=== PATIENT | female | born 1940 | race Two or more races ===

== ENCOUNTER 2021-01-23 23:36 | Inpatient (IN) | payer BC, OTHER ==
[~2021-01-23] VITALS: Ht 162.6 cm; Wt 55.8 kg
[2021-01-24] MEDS ORDERED: SODIUM CHLORIDE 0.9% 1,000 ML IV ONE ×2 (00:15→06:15)
[2021-01-24] MEDS ORDERED: ONDANSETRON HCL 4 MG/2 ML VIAL IV ONE ×2 (00:15→04:45)
[2021-01-24 00:43] LABS: Basophils # (auto) 0.1 10 ^3/uL (0-0.2); Basophils % (auto) 0.5 % (0.0-2.0); Eosinophils # (auto) 0 10 ^3/uL (0-0.8); Eosinophils % (auto) 0.2 % (0.0-7.0); Hematocrit 37.1 % (36.0-46.0); Hemoglobin 12.2 g/dL (12.2-16.2); Lymphocytes # (auto) 0.8 10 ^3/uL (0.4-5.4); Lymphocytes % (auto) 7.2 % (10.0-50.0); Mean Corpuscular Hemoglobin 28.4 pg (28.0-32.0); Mean Corpuscular Hgb Conc. 32.8 g/dL (32.0-36.0); Mean Corpuscular Volume 86.5 fL (80.0-100.0); Monocytes # (auto) 0.3 10 ^3/uL (0-1.3); Monocytes % (auto) 3.1 % (0.0-12.0); Neutrophils # (auto) 10.1 10 ^3/uL (1.6-8.6); Nucleated Red Blood Cells % 0.1 %; Platelet Count (auto) 387 10^3/uL (140-450); Red Blood Cells 4.29 10^6/uL (4.0-5.20); Red Cell Distribution Width 17.3 % (11.8-14.3); White Blood Cell 11.4 10^3/uL (4.4-10.8)
[2021-01-24] MEDS ORDERED: HYDROcodone-ACET 5/325MG TAB PO ONE (00:45)
[2021-01-24 00:57] LABS: INR 1.03 (0.9-1.15); Partial Thromboplastin Time 27.9 sec (23.0-31.2)
[2021-01-24] MEDS ORDERED: dilTIAZem 25 MG/5 ML VIAL IV ONE ×2 (01:00→06:15)
[2021-01-24 01:01] LABS: Alanine Aminotransferase 11 U/L (13-56); Albumin 2.9 g/dL (3.4-5.0); Anion Gap 19 (5-15); Aspartate Aminotransferase 9 U/L (15-37); Blood Urea Nitrogen 18 mg/dL (7-18); Calcium 8.6 mg/dL (8.5-10.1); Carbon Dioxide 16 mmol/L (21-32); Chloride 101 mmol/L (98-107); GFR African American 78 mL/min; GFR Non-African American 64 mL/min; Glucose 228 mg/dL (74-106); Magnesium 2.1 mg/dL (1.6-2.6); Potassium 3.1 mmol/L (3.5-5.1); Sodium 136 mmol/L (136-145)
[2021-01-24 01:06] LABS: Alkaline Phosphatase 103 U/L (45-117); Bilirubin, Total 0.3 mg/dL (0.2-1.0); Total Protein 6.9 g/dL (6.4-8.2)
[2021-01-24] MEDS ORDERED: POTASSIUM EFFERVESENT TAB 25 MEQ PO ONE (03:30)
[2021-01-24] MEDS ORDERED: dilTIAZem HCL 60 MG TAB PO ONE (04:00)
[2021-01-24] MEDS ORDERED: POTASSIUM CHL 20MEQ/100ML 100 ML IV ONE (04:45)
[2021-01-24] MEDS ORDERED: ONDANSETRON HCL 4 MG/2 ML VIAL ONE (05:24)
[2021-01-24] MEDS ORDERED: DEXTROSE (50%) 50ML SYRG IV PRN (06:15)
[2021-01-24] MEDS ORDERED: NITROGLYCERIN 0.4 MG SL TAB SL PRN (06:15)
[2021-01-24] MEDS ORDERED: MORPHINE SULF INJ 2 MG/ML SYRINGE 1ML IV PRN (06:15)
[2021-01-24 06:16] LABS: Urine Bacteria MANY /hpf (None Seen); Urine Blood 1+ /uL (Negative); Urine Mucus FEW (None Seen); Urine Specific Gravity 1.023 (1.001-1.035); Urine WBC 80 /hpf (0 - 5)
[2021-01-24 06:35] LABS: Amylase 11 U/L (25-115); Lipase 26 U/L (73-393)
[2021-01-24] MEDS: ACCU-CHEK COMFORT CURVE STRIP VI SCH ×4 (06:53→22:45)
[2021-01-24] MEDS: InsuLIN REG 1unit/0.01ml Soln (100units/ml) SC SCH ×5 (06:53→22:48)
[2021-01-24] MEDS ORDERED: AMIODARONE HCL 150 MG in D5W 5% 100 ML IV ONE (07:15)
[2021-01-24] MEDS ORDERED: HYDROcodone-ACET 10/325MG TAB PO PRN (07:30)
[2021-01-24] MEDS ORDERED: AMIODARONE 450mg/250ml AE 250 ML IV SCH (07:30)
[2021-01-24] MEDS: ONDANSETRON HCL 4 MG/2 ML VIAL IV PRN ×3 (07:42→18:17)
[2021-01-24] MEDS: CIPROFLOXACIN 400MG/200ML 200 ML IV SCH ×3 (08:15→22:45)
[2021-01-24 08:26] LABS: Basophils # (auto) 0 10 ^3/uL (0-0.2); Basophils % (auto) 0.2 % (0.0-2.0); Eosinophils # (auto) 0 10 ^3/uL (0-0.8); Eosinophils % (auto) 0.1 % (0.0-7.0); Hematocrit 29.6 % (36.0-46.0); Lymphocytes # (auto) 0.9 10 ^3/uL (0.4-5.4); Lymphocytes % (auto) 8.7 % (10.0-50.0); Mean Corpuscular Hemoglobin 28.9 pg (28.0-32.0); Mean Corpuscular Hgb Conc. 33.8 g/dL (32.0-36.0); Mean Corpuscular Volume 85.6 fL (80.0-100.0); Monocytes # (auto) 0.3 10 ^3/uL (0-1.3); Monocytes % (auto) 2.9 % (0.0-12.0); Neutrophils # (auto) 9.1 10 ^3/uL (1.6-8.6); Neutrophils % (auto) 88.1 % (37.0-80.0); Nucleated Red Blood Cells % 0.1 %; Platelet Count (auto) 324 10^3/uL (140-450); Red Blood Cells 3.45 10^6/uL (4.0-5.20); White Blood Cell 10.3 10^3/uL (4.4-10.8)
[2021-01-24 08:40] LABS: Albumin 2.2 g/dL (3.4-5.0); Potassium 3.9 mmol/L (3.5-5.1)
[2021-01-24 08:45] LABS: Bilirubin, Total 0.5 mg/dL (0.2-1.0); Total Protein 5.6 g/dL (6.4-8.2)
[2021-01-24] MEDS: ENOXAPARIN SOD 40 MG/0.4 ML SYRINGE SC SCH (09:43)
[2021-01-24] MEDS ORDERED: CIPROFLOXACIN 400MG/200ML 200 ML IV SCH (10:00)
[2021-01-24 15:44] VITALS: BP 167/77
[2021-01-24] MEDS: hydrALAZINE HCL 20 MG/ML VL IV PRN (16:18)
[2021-01-24] MEDS ORDERED: EZET10TA22 PO (16:26)
[2021-01-24] MEDS ORDERED: CARV12.544 PO (16:26)
[2021-01-24] MEDS ORDERED: INSU75IN2 SC (16:26)
[2021-01-24 16:55] VITALS: BP 167/77
[2021-01-24] MEDS: IBUPROFEN 600 MG TAB PO PRN (18:09)
[2021-01-24] MEDS: ACETAMINOPHEN 325 MG TAB PO PRN (18:17)
[2021-01-24 18:40] VITALS: BP 145/70
[2021-01-24 21:33] VITALS: BP 150/70
[2021-01-24] MEDS ORDERED: METOPROLOL TARTRATE 25 MG TAB PO SCH (22:00)
[2021-01-25] MEDS: ONDANSETRON HCL 4 MG/2 ML VIAL IV PRN ×2 (00:15→15:09)
[2021-01-25] MEDS: ACETAMINOPHEN 325 MG TAB PO PRN ×4 (03:42→19:40)
[2021-01-25 05:00] VITALS: BP 148/64
[2021-01-25] MEDS: ACCU-CHEK COMFORT CURVE STRIP VI SCH ×4 (05:59→22:45)
[2021-01-25] MEDS: InsuLIN REG 1unit/0.01ml Soln (100units/ml) SC SCH ×4 (06:02→22:00)
[2021-01-25] MEDS: IBUPROFEN 600 MG TAB PO PRN ×2 (06:29→17:01)
[2021-01-25 06:45] LABS: Basophils # (auto) 0 10 ^3/uL (0-0.2); Basophils % (auto) 0.4 % (0.0-2.0); Eosinophils # (auto) 0 10 ^3/uL (0-0.8); Eosinophils % (auto) 0.3 % (0.0-7.0); Hematocrit 28.3 % (36.0-46.0); Hemoglobin 9.4 g/dL (12.2-16.2); Lymphocytes # (auto) 0.8 10 ^3/uL (0.4-5.4); Lymphocytes % (auto) 9.8 % (10.0-50.0); Mean Corpuscular Hemoglobin 28.9 pg (28.0-32.0); Mean Corpuscular Hgb Conc. 33.4 g/dL (32.0-36.0); Mean Corpuscular Volume 86.4 fL (80.0-100.0); Monocytes # (auto) 0.4 10 ^3/uL (0-1.3); Monocytes % (auto) 4.6 % (0.0-12.0); Neutrophils # (auto) 6.7 10 ^3/uL (1.6-8.6); Neutrophils % (auto) 84.9 % (37.0-80.0); Platelet Count (auto) 304 10^3/uL (140-450); Red Blood Cells 3.27 10^6/uL (4.0-5.20); Red Cell Distribution Width 17.2 % (11.8-14.3); White Blood Cell 7.9 10^3/uL (4.4-10.8)
[2021-01-25 07:10] LABS: Albumin 2.3 g/dL (3.4-5.0); Potassium 3.2 mmol/L (3.5-5.1)
[2021-01-25 07:12] LABS: BUN/Creatinine Ratio 21.3
[2021-01-25 07:14] LABS: Bilirubin, Total 0.2 mg/dL (0.2-1.0); Total Protein 5.6 g/dL (6.4-8.2)
[2021-01-25 09:00] VITALS: BP 146/65
[2021-01-25] MEDS: METOPROLOL TARTRATE 50 MG TAB PO SCH ×2 (10:00→10:53)
[2021-01-25] MEDS: ENOXAPARIN SOD 40 MG/0.4 ML SYRINGE SC SCH (10:51)
[2021-01-25] MEDS: CIPROFLOXACIN 400MG/200ML 200 ML IV SCH ×2 (10:52→22:47)
[2021-01-25 13:15] VITALS: BP 154/83
[2021-01-25 17:10] VITALS: BP 112/73
[2021-01-25] MEDS ORDERED: LORazepam 2MG/ML-1ML VIAL IV PRN (21:00)
[2021-01-25 22:00] VITALS: BP_SYST 114; BP_SYST 134; BP_DIAS 67; BP_DIAS 71
[2021-01-26] MEDS: ACETAMINOPHEN 325 MG TAB PO PRN ×3 (02:33→17:21)
[2021-01-26 04:54] VITALS: BP 175/96
[2021-01-26] MEDS: hydrALAZINE HCL 20 MG/ML VL IV PRN (05:57)
[2021-01-26] MEDS: IBUPROFEN 600 MG TAB PO PRN ×2 (06:10→20:36)
[2021-01-26] MEDS: ACCU-CHEK COMFORT CURVE STRIP VI SCH ×4 (06:19→21:50)
[2021-01-26] MEDS: InsuLIN REG 1unit/0.01ml Soln (100units/ml) SC SCH ×4 (06:45→22:06)
[2021-01-26 07:00] VITALS: BP 137/58
[2021-01-26 09:00] VITALS: BP 143/80
[2021-01-26] MEDS: METOPROLOL TARTRATE 50 MG TAB PO SCH ×2 (10:00→21:50)
[2021-01-26] MEDS ORDERED: methylPREDNISolone SOD SUCC 500 MG in SODIUM CHL 0.9% 100 ML IV SCH (10:00)
[2021-01-26] MEDS: CIPROFLOXACIN 400MG/200ML 200 ML IV SCH (11:01)
[2021-01-26] MEDS: ENOXAPARIN SOD 40 MG/0.4 ML SYRINGE SC SCH (11:14)
[2021-01-26] MEDS ORDERED: IOHEXOL 350 MG/ML 100ML IJ ONE ×2 (11:32→12:39)
[2021-01-26] MEDS: ONDANSETRON HCL 4 MG/2 ML VIAL IV PRN (12:06)
[2021-01-26] MEDS ORDERED: GADOTERATE MEG 7.5 MMOL/15ml INJ (0.5MMOL/ml) IV ONE (12:14)
[2021-01-26 12:56] VITALS: BP 116/66
[2021-01-26 16:44] VITALS: BP 116/59
[2021-01-26] MEDS ORDERED: VANCOMYCIN PER PHARMACY 0 MG IV SCH (18:15)
[2021-01-26] MEDS ORDERED: VANCOMYCIN 1GM/250ML 250 ML IV SCH (21:00)
[2021-01-26] MEDS: PIPERACILLIN-TAZOB 3.375GM 100 ML IV SCH (21:51)
[2021-01-26 22:00] VITALS: BP 144/55
[2021-01-27] MEDS: ACETAMINOPHEN 325 MG TAB PO PRN (02:44)
[2021-01-27 05:00] VITALS: BP 144/73
[2021-01-27] MEDS: ACCU-CHEK COMFORT CURVE STRIP VI SCH ×3 (05:36→18:20)
[2021-01-27] MEDS: PIPERACILLIN-TAZOB 3.375GM 100 ML IV SCH ×2 (05:36→15:12)
[2021-01-27] MEDS: InsuLIN REG 1unit/0.01ml Soln (100units/ml) SC SCH ×3 (06:29→18:20)
[2021-01-27 06:31] LABS: Basophils # (auto) 0 10 ^3/uL (0-0.2); Basophils % (auto) 0.2 % (0.0-2.0); Eosinophils # (auto) 0 10 ^3/uL (0-0.8); Eosinophils % (auto) 0.4 % (0.0-7.0); Hematocrit 27.4 % (36.0-46.0); Hemoglobin 9.3 g/dL (12.2-16.2); Lymphocytes % (auto) 13.5 % (10.0-50.0); Mean Corpuscular Hemoglobin 29.2 pg (28.0-32.0); Mean Corpuscular Volume 85.8 fL (80.0-100.0); Monocytes # (auto) 0.4 10 ^3/uL (0-1.3); Monocytes % (auto) 5.6 % (0.0-12.0); Neutrophils # (auto) 6.1 10 ^3/uL (1.6-8.6); Neutrophils % (auto) 80.3 % (37.0-80.0); Nucleated Red Blood Cells % 0.1 %; Platelet Count (auto) 349 10^3/uL (140-450); Red Cell Distribution Width 17.5 % (11.8-14.3); White Blood Cell 7.6 10^3/uL (4.4-10.8)
[2021-01-27 06:44] LABS: Calcium 8.3 mg/dL (8.5-10.1)
[2021-01-27 06:46] LABS: BUN/Creatinine Ratio 13.5
[2021-01-27 07:55] LABS: Potassium 2.5 mmol/L (3.5-5.1)
[2021-01-27] MEDS ORDERED: POTASSIUM CHL 20 Meq TABLET PO ONE (08:15)
[2021-01-27 09:00] VITALS: BP 145/65
[2021-01-27] MEDS: ENOXAPARIN SOD 40 MG/0.4 ML SYRINGE SC SCH (09:45)
[2021-01-27] MEDS: METOPROLOL TARTRATE 50 MG TAB PO SCH (09:45)
[2021-01-27] MEDS ORDERED: D5W 5% IV SCH (10:00)
[2021-01-27] MEDS ORDERED: FLORASTOR (S. BOULARDII) 250 MG CAP PO SCH (10:00)
[2021-01-27] MEDS ORDERED: AMPHOTERICIN B LIPOSOME IV SCH (10:00)
[2021-01-27] MEDS: POTASSIUM CHL 20MEQ/100ML 100 ML IV SCH ×2 (10:06→12:09)
[2021-01-27] MEDS: hydrALAZINE HCL 20 MG/ML VL IV PRN (12:51)
[2021-01-27 13:00] VITALS: BP 165/73
[2021-01-27 16:44] VITALS: BP 115/51
== END 2021-01-27 20:05 | disposition short-term general hospital (02) | DRG 640 ==
LOC: EDBD 23:36 → ER 23:40 → TELE 23:41 → UNDOADMOB 23:41 → WEST WING 01-24 14:42 → OBSVTOIN 01-24 14:49 → WEST WING 01-24 14:49 → TELE-WESTW 01-26 17:57
PROVIDERS: ADMIT Internal Medicine; ATTEND Internal Medicine
DX: E87.6 Hypokalemia (principal); B46.5 Mucormycosis, unspecified; N39.0 Urinary tract infection, site not specified; H05.019 Cellulitis of unspecified orbit; I47.1 Supraventricular tachycardia; E11.9 Type 2 diabetes mellitus without complications; Z20.822 Contact with and (suspected) exposure to COVID-19; F17.200 Nicotine dependence, unspecified, uncomplicated; H54.62 Unqualified visual loss, left eye, normal vision right eye; I10 Essential (primary) hypertension; J32.2 Chronic ethmoidal sinusitis; Z83.3 Family history of diabetes mellitus; H05.20 Unspecified exophthalmos; J32.8 Other chronic sinusitis; H49.9 Unspecified paralytic strabismus; Z79.4 Long term (current) use of insulin
CPT/HCPCS: 36415; 70450; 70496; 70542; 70553; 71045; 74176; 80048; 80053; 81001; 82150; 82962; 83036; 83690; 83735; 83880; 84443; 84484; 85025; 85610; 85652; 85730; 86141; 87040; 87081; 87086; 87426; 93005; 93306; 96361; 96374; 96375; G0378; J1815; J2405; J2543; J3480; J7060